=== PATIENT | male | born 1965 | race Caucasian/White ===

== ENCOUNTER → 2020-09-08 | Day surgery (SDC) | payer OTHER ==
[~2020-09-08] VITALS: Ht 175.3 cm; Wt 75.7 kg
[2020-09-08] VITALS (7 sets, daily range): BP systolic 132–147; BP diastolic 76–98
[~2020-09-08] MED LIST: ALPRAZOLAM0.5 MG PO; Atropine Sulfate 0.4mg/ml inj IVP PRN; DiphenhydrAMINE 50mg/ml Inj IVP PRN; ECHINACEA400 MG PO; HYDROcodone/Acetamin 5/325 tab ORAL PRN; HYDROcodone/Acetamin 7.5/325 tab ORAL PRN; Hydromorphone 0.5mg/0.5ml inj IVP PRN; IBUPROFEN600 M1 ORAL; Ketorolac 30mg Inj IV PRN; LISINOPRIL5 MG ORAL; LORazepam Inj 2mg/ml 1ml IV PRN; LR 1000ml 1,000 ML IVLG SCH; LR 1000ml ONE; Labetalol 5mg/ml 20ml vial IV PRN; Lidocaine 1% MPF 10mg/ml 5ml ONE; Meperidine 25mg/1ml Inj (FOR RIGORS ONLY) IV PRN; Metoclopramide 10mg/2ml Inj IVP PRN; Midazolam 2mg/2ml Inj IVP PRN; Midazolam 2mg/2ml Inj ONE; PROBIOTIC1 EAC2 PO; TYLENOL EXTRA500 MG ORAL; VITAMIN C500 M1 ORAL; VITAMIN D PO; fentaNYL 100 mcg/2 mL IV PRN; oxyCODONE HCL/Acetaminophen 5/325mg ORAL PRN
--- NOTE | 2020-09-08 07:21 | Short Stay Surgery H&P ---
History of Present Illness History of Present Illness Chief Complaint Abdominal pains/GERDs/rectal bleeding HPI René Roy is a 55 year old male who was admitted on for Gerd, IBS, rectal bleeding and abdominal pains Patient History Allergies: Coded Allergies: MORPHOLINE ANALOGUES (Verified Allergy, Unknown, 09/04/20) severe itching Past Surgeries: (1) Hypertension (2) History of lumbar discectomy Medication History Scheduled Alprazolam* (Xanax*), 0.5 MG PO TID, (Reported) Ibuprofen* (Motrin*), 200 MG ORAL FOUR TIMES A DAY, (Reported) Lisinopril (Lisinopril*), 5 MG ORAL DAILY, (Reported) Review of Systems Cardiovascular: Reports: hypertension Respiratory: Reports: no symptoms Skeletal: Reports: trauma Gastrointestinal: Reports: gastro esophageal reflux disease Genitourinary: Reports: no symptoms Neurologic: Reports: no symptoms Endocrine: Reports: no symptoms Hematologic: Reports: no symptoms Physical Exam Skin: normal HENT: normal Heart: normal Lungs: normal Abdomen: abnormal Extremities: normal Genitourinary: normal Plan Plan of Care Upper and lower GI endoscopies with biopsy. Preop Interventions None. Summary of Findings See the reports. Attestation Are the patient's medical conditions optimized for surgery? Attestation Response: yes Mariam Dewey MD Sep 08, 2020 07:21
--- NOTE | 2020-09-08 07:22 | Pre-Procedure Note/Attestation ---
Pre-Procedure Note/Attestation Complete Prior to Procedure Planned Procedure: left Procedure Narrative: Examination of the upper and the lower GI tract via endoscopy. Indications for Procedure Pre-Operative Diagnosis: R/O Peptic ulcer/esophagitis/hemorrhoids/polyps Attestation I attest that I discussed the nature of the procedure; its benefits; risks and complications; and alternatives (and the risks and benefits of such alternatives), prior to the procedure, with the patient (or the patient's legal congressional representative). I attest that, if there was a reasonable possibility of needing a blood transfusion, the patient (or the patient's legal congressional representative) was given the [facility] standardized written summary, pursuant to the Jhon Pearl Blood Safety Act ([place] Health and Safety Code # 1645, as amended). I attest that I re-evaluated the patient just prior to the surgery and that there has been no change in the patient's H&P, except as documented below: Mariam Dewey MD Sep 08, 2020 07:22
--- NOTE | 2020-09-08 07:23 | Discharge Instructions ---
Discharge Instructions Discharge Instructions Follow up with: No need to follow with this doctor. For Congestive Heart Failure Reminder Report to your physician any weight gain of 5 pounds or more in one week. Mariam Dewey MD Sep 08, 2020 07:23
--- NOTE | 2020-09-08 07:44 | Anethesia Preoperative Eval ---
Anesthesia Pre-op PMH/ROS General Date of Evaluation: Sep 08, 2020 Time of Evaluation: 08:17 Anesthesiologist: Sarita ASA Score: ASA 3 Mallampati Score Class I : Soft palate, uvula, fauces, pillars visible Class II: Soft palate, uvula, fauces visible Class III: Soft palate, base of uvula visible Class IV: Only hard plate visible Mallampati Classification: Class II Surgeon: Charley Diagnosis: Abd Pain Surgical Procedure: EGD/Coloscopy Anesthesia History: none Family History: no anesthesia problems Allergies: Coded Allergies: MORPHOLINE ANALOGUES (Verified Allergy, Severe, 09/08/20) severe itching Medications: see eMAR Patient NPO?: Yes Past Medical History Cardiovascular: Reports: HTN Gastrointestinal/Genitourinary: Reports: other - Hemorrhoids Neurologic/Psychiatric: Reports: depression/anxiety PSxH Narrative: L3-S1 Fx Anesthesia Pre-op Phys. Exam Physician Exam Last Vital Signs Date Time Temp Pulse Resp B/P (MAP) Pulse Ox O2 Delivery O2 Flow Rate FiO2 09/08/20 07:31 Room Air Constitutional: NAD Neurologic: CN 2-12 intact Cardiovascular: RRR Respiratory: CTA Gastrointestinal: S/NT/ND Airway Exam Mallampati Score: Class II MO: full ROM: full Teeth: missing, intact Anesthesia Pre-op A/P Risk Assessment & Plan Assessment: ASA 3 Plan: TIVA Status Change Before Surgery: Masood Cannon MD Sep 08, 2020 07:44
--- NOTE | 2020-09-08 07:45 | Immediate Post-Op Evaluation ---
Immediate Post-Op Evalulation Immediate Post-Op Evalulation Procedure: EGD/ Colonoscopy Date of Evaluation: Sep 08, 2020 Time of Evaluation: 09:17 IV Fluids: 500 LR Blood Products: 0 Estimated Blood Loss: 2 Urinary Output: 0 Blood Pressure Systolic: 146 Blood Pressure Diastolic: 88 Pulse Rate: 69 Respiratory Rate: 16 O2 Sat by Pulse Oximetry: 100 Temperature (Fahrenheit): 98.7 Pain Score (1-10): 2 Nausea: No Vomiting: No Complications 0 Patient Status: awake, reacts, patent, none Hydration Status: adequate Masood Stein MD Sep 08, 2020 07:45
--- NOTE | 2020-09-08 07:46 | 48 Hour Post Anesthesia Eval ---
Post Anesthesia Evaluation Procedure: EGD/ Colonoscopy Date of Evaluation: Sep 08, 2020 Time of Evaluation: 11:23 Blood Pressure Systolic: 132 0: 83 Pulse Rate: 74 Respiratory Rate: 18 Temperature (Fahrenheit): 98.6 O2 Sat by Pulse Oximetry: 99 Airway: patent Nausea: No Vomiting: No Pain Intensity: 1 Hydration Status: adequate Cardiopulmonary Status: Stable Mental Status/LOC: patient returned to baseline Follow-up Care/Observations: 0 Post-Anesthesia Complications: 0 Follow-up care needed: ready to discharge Masood Stein MD Sep 08, 2020 07:46
--- NOTE | 2020-09-08 08:50 | Endoscopy Procedure Note ---
Endoscopy Procedure Note General Indication for Procedure: Abdominal pains/rectal bleeding/GERDs. Procedures Performed: EGD - Mild gastritis and evidence of bile in the stomach. biopsy obtained from gastric body., colonoscopy - Melanosis Coli and minimal internal hemorrhoids. Random biopsy from mid tranasverse colon obtained. Easy bleeder at the site of the biopsy that was coagulated. Specimen: yes Pt Tolerated Procedure Well: Yes Estimated Blood Loss: none Anesthesia Anesthesiologist: Dr. Stein Anesthesia: moderate sedation Medications Medication Given: see anesthesia record Inserted Devices Implant(s) used?: No Quality Quality of Bowel Preparation: Good Did scope reach the cecum?: Yes Was there any complications?: No GI Core Measures 50 yrs or older w/o bx or poly: Yes 10yrs. F/U recommended: Yes Med reason:<3 yrs.: System Reason:<3 yrs.: Mariam Dewey MD Sep 08, 2020 08:50
--- NOTE | 2020-09-08 09:29 | Procedure Note ---
DATE OF PROCEDURE: 09/08/2020 SURGEON: Mariam Dewey MD PROCEDURE: Esophagogastroduodenoscopy with biopsy. PREOPERATIVE DIAGNOSES: Abdominal pain, history of chronic gastroesophageal acid reflux. POSTOPERATIVE DIAGNOSIS: Evidence of mild gastritis and minimal bile in the stomach consistent with duodenal gastric bile reflux. Biopsy was taken per random from gastric body. MEDICATION USED: Per Dr. Stein, anesthesiologist. INSTRUMENT: GIF Olympus upper GI video endoscope. DESCRIPTION OF PROCEDURE: The patient after arriving endoscopy unit, was told about risks and benefits of the procedure which he accepted and signed informed consent. At this time, he was put in the left lateral decubitus position. After adequate IV sedation, the scope was gently passed through the cricopharyngeal area, was lodged into the upper esophagus and gradually advanced towards gastroesophageal junction. The entire length of esophagus looked normal without any evidence of pathology. No stricture, polyps, tumors, bleeding site etc. GE junction also was within normal limits without any evidence of Pritchard's or hiatal hernia. Subsequently, the scope was advanced into the stomach. Gastric cavity was distended with insufflation of air and gradually the areas of the fundus and the body and antrum were examined. There was evidence of mild gastritis with mild gastric erythema. However, there was also minimal amount of bile in the stomach as well. At this time, one random biopsy from gastric body was obtained and subsequently retrograde maneuver was applied. The area of the gastroesophageal junction was examined, which revealed no other abnormalities. At this time, the scope was passed through the pylorus. First and second portion of duodenum were also examined which were completely normal. Finally, scope was pulled out and the procedure was terminated. The patient tolerated the procedure well. Mariam Dewey M.D. DR: Monster JOB#: [id number] CC:
--- NOTE | 2020-09-08 09:29 | Operative Note - Dictated ---
DATE OF OPERATION: 09/08/2020 SURGEON: Mariam Dewey MD. PROCEDURE: Total colonoscopy with biopsy. PREOPERATIVE DIAGNOSIS: Abdominal pain, history of rectal bleeding. POSTOPERATIVE DIAGNOSES: 1. Minimal internal hemorrhoids. 2. 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 The random biopsy was taken from mid body of the transverse colon. There was evidence of easy friability and bleeding, which at this time the site of the biopsy was coagulated and there was no further bleeding at the biopsy site. MEDICATION USED: Per Dr. Stein anesthesiologist. INSTRUMENT: GIF Olympus video colonoscope. DESCRIPTION OF PROCEDURE: The patient after arriving an endoscopy unit, was told about risks and benefits of the procedure, which he accepted and signed informed consent. He was then put on the left lateral decubitus position. After adequate IV sedation, the scope was gently entered in the anal area, which revealed evidence of minimal internal hemorrhoids, which was confirmed by retroflexion maneuver of the scope in the rectum. The rest of the rectum was completely normal. At this time, the scope was gradually advanced towards rectosigmoid angle from there into descending colon revealing evidence of pigmented area all over the colon consistent with melanosis coli of [id number] degree. At this time, the scope was gradually advanced further up into the splenic flexure from there into transverse colon, hepatic flexure, and finally was guided into the right colon all the way to the base of the cecum. The colon cleanup was [id number] and constant irrigation was also made to see the colonic mucosa better. At this time, the scope was gradually pulled out and one random biopsy from mid transverse colon was obtained. The site of biopsy started to bleed abnormally and at this time, it was washed with epinephrine solution and subsequently was coagulated with the biopsy forceps. Finally, the scope was gradually pulled out, which took about 5 to 6 minutes and no other abnormalities were found except what was stated earlier. The patient tolerated the procedure well and left the endoscopy room in a good condition. Mariam Dewey M.D. DR: MANFRED JOB#: [id number] CC:
== END | disposition home or self-care (01) ==
LOC: GAS 07:12
DX: K29.70 Gastritis, unspecified, without bleeding (principal); K64.8 Other hemorrhoids; K63.89 Other specified diseases of intestine; I10 Essential (primary) hypertension; K21.9 Gastro-esophageal reflux disease without esophagitis; F32.9 Major depressive disorder, single episode, unspecified; F41.9 Anxiety disorder, unspecified
CPT/HCPCS: 43239; 45380; 94003; J0171; J2250; J2704; J7120; U0004; 94150